=== PATIENT | female | born 1980 | race Caucasian/White ===

== ENCOUNTER → 2016-08-07 | Outpatient (CLI) | payer BC ==
[~2016-08-07] MED LIST: ATIVAN 1MG T1 MG/TAB PO; BUPROPRION; ESCITALOPRAM; LORTAB 5/500 501 TAB PO; NAPROSYN500 MG PO; PRISTIQ50 M1 PO
== END ==
LOC: BHSO 10:42
DX: F41.1 Generalized anxiety disorder (principal)

== ENCOUNTER → 2017-03-05 | Outpatient (CLI) | payer BC | LOC: BHSO 11:24 | DX: F41.1 Generalized anxiety disorder (principal) ==

== ENCOUNTER → 2019-01-28 | Outpatient (CLI) | payer BC | LOC: MC.RAD 09:25 | DX: Z12.31 Encounter for screening mammogram for malignant neoplasm of breast (principal); Z98.82 Breast implant status ==

== ENCOUNTER → 2020-06-16 | Outpatient (CLI) | payer BC | LOC: MC.RAD 08:00 | DX: Z12.31 Encounter for screening mammogram for malignant neoplasm of breast (principal); Z98.82 Breast implant status ==

== ENCOUNTER → 2021-08-01 | Outpatient (CLI) | payer BC | LOC: MC.RAD 08:03 | DX: Z12.31 Encounter for screening mammogram for malignant neoplasm of breast (principal) ==